=== PATIENT | female | born 1955 | race Native Hawaiian/Other Pacific Islander ===

== ENCOUNTER 2017-09-11 12:41 | Observation (INO) | payer OTHER ==
--- NOTE | 2017-09-11 12:51 | ED PDOC ---
Arrival/HPI - General Time Seen by Provider: 09/11/17 12:42 Historian: Patient, Family - History of Present Illness Narrative History of Present Illness (Text): 09/11/17 13:03 Patient is a 62 yo female, past medical history of hypertension, presents to ED with family for acute onset of shortness of breath approximately one hour prior to arrival. Patient reportedly has had "a cough for about one year". Family states that she awoke "her normal self" and symptoms started approximately one hour prior to arrival. Patient denies chest pain or back pain. Denies neck pain or arm pain. Son states that she feels as if she has been "coughing more" over the past several days. Patient moved here from [place] in March of this year as per son. She denies any known past cardiac history aside from hypertension, denies prior pulmonary disease. No history of fevers or chills. No productive sputum. Time/Duration: Prior to Arrival Symptom Onset: Sudden Past Medical History - Provider Review Nursing Documentation Reviewed: Yes Family/Social History - Physician Review Nursing Documentation Reviewed: Yes Family/Social History: No Known Family HX Allergies/Home Meds Allergies/Adverse Reactions: Allergies No Known Allergies Allergy (Verified 09/11/17 12:44) Home Medications: Home Meds Medication Instructions Recorded Confirmed Carvedilol [Coreg] 6.25 mg PO DAILY 09/11/17 09/11/17 Levothyroxine [Synthroid] 100 mcg PO DAILY 09/11/17 09/11/17 Review of Systems - Review of Systems Constitutional: Fatigue Respiratory: SOB, Cough. absent: Sputum, Wheezing Cardiovascular: Edema, KITCHEN. absent: Chest Pain, Palpitations, Calf Pain, Orthopnea, Syncope Gastrointestinal: absent: Abdominal Pain Musculoskeletal: absent: Back Pain Skin: absent: Rash Neurological: absent: Headache, Dizziness Hemo/Lymphatic: absent: Easy Bleeding Physical Exam - Physical Exam Narrative Physical Exam (Text): 09/11/17 12:48 Head: Atraumatic. Normocephalic. Eyes: PERRL. EOMI. Conjunctivae are not pale. ENT: Mucous membranes are moist and intact. Oropharynx is clear and symmetric. Neck: Supple. Full ROM. No JVD. No lymphadenopathy. Cardiovascular: Tachycardic. Systolic murmur. Distal pulses are 2+ and symmetric. Pulmonary/Chest: Tachypneic, rales at bases bilaterally. No accessory muscle usage. No retractions. Abdominal: Soft and non-distended. There is no tenderness. No rebound, guarding, or rigidity. No organomegaly. Good bowel sounds. Back: No CVA tenderness. Extremities: Bilateral mild nonpitting edema. No cyanosis. No clubbing. Full range of motion in all extremities. No calf tenderness. Skin: Skin is warm and dry. No petechiae. No purpura. Neurological: Alert, awake, appropriate. Motor and sensory exam intact. No facial droop. No meningeal signs. Psychiatric: Good eye contact. Normal interaction, affect, and behavior. Vital Signs Reviewed: Yes Vital Signs Temp Pulse Resp BP Pulse Ox 09/11/17 15:47 73 16 140/90 100 09/11/17 15:27 138/77 09/11/17 13:45 97.8 F 100 H 16 106/57 L 100 09/11/17 13:40 92 H 16 144/87 100 09/11/17 13:00 93 H 16 149/98 H 100 09/11/17 12:45 16 09/11/17 12:42 98 F 89 15 165/104 H 98 Temperature: Afebrile Blood Pressure: Hypertensive Respiratory Rate: Tachypneic Appearance: Positive for: Ill-Appearing, Uncomfortable Pain Distress: Moderate Mental Status: Positive for: Alert and Oriented X 3 Medical Decision Making ED Course and Treatment: Patient is a 62 yo female visiting from [facility] since March with acute onset of shortness of breath. Patient denies any chest pain or back pain. Patient denies any past cardiac history or diabetes. Patient present with son who supplements history. Patient with no recent fevers/chills. On exam the patient is noted to have rales although patient was started on nitroglycerin drip prior to arrival due to noted significant hypertension PRIOR TO ARRIVAL with reported improvement in SOB. She is on CPAP prior to arrival. She was expressing discomfort in face from CPAP and was switched to nasal cannula. She is oxygenating well with no pain on serial exams, no chest discomfort reported or noted. Patient on re-exam has been take off nitroglycerin drip while in ED at this time BP is better controlled. Labs were reviewed, will administer dose of Lasix as patient with possible component of congestive heart failure, uncontrolled hypertension. Patient will be admitted to telemetry bed to hospitalist service for further BP monitoring as well as cardiology/pulmonology evaluation. 09/11/17 15:05 - Lab Interpretations Lab Results: 09/11/17 13:22 09/11/17 13:22 Lab Results 09/11/17 13:40: pCO2 41, pO2 124.0 H, HCO3 24.3, ABG pH 7.38, ABG Total CO2 25.6 , ABG O2 Saturation 98.7 H, ABG Base Excess -0.8, ABG Potassium 3.9, Sodium 130.0 L, Chloride 99.0, Glucose 97, Lactate 1.3, FiO2 32.0, Arterial Blood Potassium 3.9 09/11/17 13:22: Sodium 132, Chloride 95 L, Potassium 4.3, Carbon Dioxide 26, Anion Gap 14, BUN 18, Creatinine 1.0, Est GFR ( Amer) > 60, Est GFR (Non- Af Amer) 56, Random Glucose 104, Calcium 8.9, Total Bilirubin 0.4, AST 41 H, ALT 41, Alkaline Phosphatase 84, Lactate Dehydrogenase 702 H, Total Creatine Kinase 156, Troponin I < 0.01, NT-Pro-B Natriuret Pep 1510 H, Total Protein 7.8 , Albumin 4.4, Globulin 3.4, Albumin/Globulin Ratio 1.3 09/11/17 13:22: pO2 36, VBG pH 7.24 L, VBG pCO2 65.0 H, VBG HCO3 27.9, VBG Total CO2 29.9 H, VBG O2 Sat (Calc) 69.0 H, VBG Base Excess -1.0 L, VBG Potassium 4.3, Sodium 130.0 L, Chloride 96.0 L, Glucose 107 H, Lactate 1.1, FiO2 21.0, Venous Blood Potassium 4.3 09/11/17 13:22: PT 12.0, INR 1.09 H, APTT 31.8 09/11/17 13:22: WBC 7.0, RBC 3.89, Hgb 11.0 L, Hct 33.7 L, MCV 86.6, MCH 28.3, MCHC 32.6, RDW 13.3, Plt Count 275, MPV 10.2, Gran % 62.1, Lymph % (Auto) 28.2, Early % (Auto) 4.3, Eos % (Auto) 4.8, Baso % (Auto) 0.6, Gran # 4.37, Lymph # 2.0 , Early # 0.3, Eos # 0.3, Baso # 0.04 - RAD Interpretation Radiology Orders: 09/11/17 12:56 CHEST PORTABLE [RAD] Stat 09/11/17 14:07 DUPLEX LOWER EXTRM VEIN BILAT [US] Stat - EKG Interpretation EKG Interpretation (Text): 09/11/17 15:05 sinus tachycardia rate of [address] elevations Interpreted by ED Physician: Yes Type: 12 lead EKG Comparison: No previous EKG avail. - Medication Orders Current Medication Orders: Acetaminophen (Tylenol 325mg Tab) 650 mg PO Q6H PRN PRN Reason: Pain, moderate (4-7) Aspirin (Aspirin Chewable) 81 mg PO DAILY DOMINGO Carvedilol (Coreg) 6.25 mg PO DAILY DOMINGO Enoxaparin Sodium (Lovenox) 40 mg SC DAILY DOMINGO PRN Reason: Protocol Famotidine (Pepcid) 20 mg PO 1000,2200 DOMINGO Furosemide (Lasix) 40 mg IVP BID DOMINGO Levothyroxine Sodium (Synthroid) 100 mcg PO DAILY DOMINGO Lisinopril (Zestril) 5 mg PO DAILY DOMINGO Discontinued Medications Acetaminophen (Tylenol 325mg Tab) 650 mg PO ONCE STA Stop: 09/11/17 13:32 Last Admin: 09/11/17 14:08 Dose: 650 mg [facility] Pain/Vitals Document 09/11/17 14:08 SRE (Rec: 09/11/17 14:09 SRE [id number]) Pain Reassessment Is This A Pain ReAssessment? Yes Sleep Is patient sleeping during reassessment? No Presence of Pain Presence of Pain Yes Pain Scale Used Pain Scale Used Numeric Location Pain Location Body Registered [facility] Nurse Description Intermittent Furosemide (Lasix) 20 mg IVP ONCE ONE Stop: 09/11/17 14:29 Last Admin: 09/11/17 15:27 Dose: 20 mg MAR Blood Pressure Document 09/11/17 15:27 SRE (Rec: 09/11/17 15:35 SRE [id number]) Blood Pressure Blood Pressure (100/60-150/90) 138/77 IVP Administration Document 09/11/17 15:27 SRE (Rec: 09/11/17 15:35 SRE [id number]) Charges for Administration # of IVP Administrations 1 - Scribe Statement The provider has reviewed the documentation as recorded by the Scribe Cheri West Provider Scribe Attestation: All medical record entries made by the Scribe were at my direction and personally dictated by me. I have reviewed the chart and agree that the record accurately reflects my personal performance of the history, physical exam, medical decision making, and the department course for this patient. I have also personally directed, reviewed, and agree with the discharge instructions and disposition. Disposition/Present on Arrival - Present on Arrival Any Indicators Present on Arrival: No - Disposition Have Diagnosis and Disposition been Completed?: Yes Diagnosis: Congestive heart failure, Hypertension Disposition: HOSPITALIZED Disposition Time: 14:00 Patient Plan: Admission, Telemetry Patient Problems: Current Active Problems Problem Status Onset Congestive heart failure Acute Hypertension Acute Condition: SERIOUS
[2017-09-11 13:27] LABS: BASO # 0.04 K/mm3 (0.0-2.0); BASO % 0.6 % (0.0-3.0); EOS # 0.3 (0.0-0.7); EOS % 4.8 % (1.5-5.0); GRAN # 4.37 (1.4-6.5); GRAN % 62.1 % (50.0-68.0); HEMATOCRIT 33.7 % (36.0-48.0); LYMPH % 28.2 % (22.0-35.0); MEAN CELL VOLUME 86.6 fl (80.0-105.0); MEAN CORPUSCULAR HEMOGLOBIN 28.3 pg (25.0-35.0); MEAN CORPUSCULAR HGB CONC 32.6 g/dl (31.0-37.0); MEAN PLATELET VOLUME 10.2 fl (7.0-11.0); MONO # 0.3 (0.1-0.6); MONO % 4.3 % (1.0-6.0); RED CELL DISTRIBUTION WIDTH 13.3 % (11.5-14.5)
[2017-09-11 13:30] LABS: VENOUS BLOOD PH 7.24 (7.32-7.43)
[2017-09-11 13:37] LABS: INR 1.09 (0.93-1.08)
[2017-09-11 13:38] LABS: PARTIAL THROMBOPLASTIN TIME 31.8 Seconds (25.1-36.5)
[2017-09-11 13:47] LABS: ALB/GLOB RATIO 1.3 (1.1-1.8); ALKALINE PHOSPHATASE 84 U/L (38-126); ALT/SGPT 41 U/L (7-56); AST/SGOT 41 U/L (14-36); BILIRUBIN,TOTAL 0.4 mg/dL (0.2-1.3); BLOOD UREA NITROGEN 18 mg/dL (7-21); CALCIUM 8.9 mg/dL (8.4-10.5); CARBON DIOXIDE 26 mmol/L (21-33); CHLORIDE 95 mmol/L (98-107); GFR AFRICAN-AMERICAN > 60; GLUCOSE,RANDOM 104 mg/dL (70-110); POTASSIUM 4.3 mmol/L (3.6-5.0); SODIUM 132 mmol/L (132-148); TOTAL PROTEIN 7.8 g/dL (5.8-8.3)
[2017-09-11 13:55] LABS: TROPONIN I < 0.01 ng/mL
[2017-09-11 13:57] LABS: ARTERIAL BLOOD GAS HCO3 24.3 mmol/L (21-28); ARTERIAL BLOOD GAS PH 7.38 (7.35-7.45)
--- NOTE | 2017-09-11 14:40 | CP.PCM.HP ---
<Rae Villalobos - Last Filed: 09/11/17 17:06> History of Present Illness - History of Present Illness History of Present Illness: 62 year old female PMHx HTN,hypothyroidism, and arthritis presents with shortness of breath prior to arrival to the ED. Patient reports her symptoms began suddenly when she was in the bathroom with no inciting factors. Patient reports she has dyspnea on exertion and can usually walk for 10 minutes prior to becoming short of breath and she stated she is unable to stand up for very long or climb stairs. She uses 1 pillow to sleep and denied orthopnea or paroxysmal nocturnal dyspnea. She did report a nonproductive cough for 1 year now with no inciting factor but denied any fevers or chills. She also denied any chest pain, palpitations, abdominal pain, nausea, vomiting, bowel/bladder complaints. She did notice some swelling in her legs but is uncertain for how long and reported she had pain in her legs that she associated with arthritis. Patient is visiting from [place] since March and staying with her family. She denied any recent sick contacts or change in medications. PMD: None [patient visiting from [place]] Pharmacy: None PMHx: HTN, hypothyroidism, arthritis PSurgHx: cholecystectomy FamHx: SocHx: denies EtOH and drug use; does not smoke cigarettes but chews tobacco in the form of paan [bey leaf] 4-5/day Meds: pls see chart ALL: NKDA Present on Admission - Present on Admission Any Indicators Present on Admission: No Review of Systems - Review of Systems All systems: reviewed and no additional remarkable complaints except - Constitutional Constitutional: As Per HPI. absent: Chills, Fever - EENT Eyes: As Per HPI. absent: Blurred Vision Ears: As Per HPI. absent: Dizziness Nose/Mouth/Throat: As Per HPI. absent: Sore Throat - Cardiovascular Cardiovascular: As Per HPI, Dyspnea, Pedal Edema. absent: Chest Pain, Edema, Orthopnea, Paroxysmal Nocturnal Dyspnea - Respiratory Respiratory: As Per HPI, Cough, Dyspnea, Dyspnea on Exertion - Gastrointestinal Gastrointestinal: As Per HPI. absent: Abdominal Pain, Constipation, Diarrhea, Nausea, Vomiting - Genitourinary Genitourinary: As Per HPI. absent: Dysuria, Pyuria - Musculoskeletal Musculoskeletal: As Per HPI. absent: Back Pain, Numbness, Tingling - Integumentary Integumentary: As Per HPI. absent: Dry Skin - Neurological Neurological: As Per HPI. absent: Dizziness, Numbness, Headaches - Psychiatric Psychiatric: As Per HPI. absent: Anxiety - Endocrine Endocrine: As Per HPI. absent: Polydipsia, Polyphagia, Polyuria - Hematologic/Lymphatic Hematologic: As Per HPI. absent: Easy Bleeding, Easy Bruising Past Patient History - Past Social History Smoking Status: Never Smoked - CARDIAC Hx Cardiac Disorders: Yes Hx Hypertension: Yes - NEUROLOGICAL Hx Neurological Disorder: Yes Hx Seizures: Yes - PSYCHIATRIC Hx Substance Use: No - SURGICAL HISTORY Hx Surgeries: No Meds Allergies/Adverse Reactions: Allergies Allergy/AdvReac Type Severity Reaction Status Date / Time No Known Allergies Allergy Verified 09/11/17 12:44 Physical Exam - Constitutional Appears: Non-toxic, No Acute Distress - Head Exam Head Exam: ATRAUMATIC, NORMAL INSPECTION - Eye Exam Eye Exam: EOMI, Normal appearance, PERRL. absent: Conjunctival injection, Scleral icterus Pupil Exam: PERRL - ENT Exam ENT Exam: Mucous Membranes Dry - Neck Exam Neck exam: Negative for: Lymphadenopathy, Tenderness - Respiratory Exam Respiratory Exam: Decreased Breath Sounds, NORMAL BREATHING PATTERN - Cardiovascular Exam Cardiovascular Exam: Tachycardia, REGULAR RHYTHM, +S1, +S2, Systolic Murmur - GI/Abdominal Exam GI & Abdominal Exam: Normal Bowel Sounds, Soft. absent: Rebound, Rigid, Tenderness - Extremities Exam Extremities exam: Positive for: pedal edema (b/l nonpitting mild), pedal pulses present - Back Exam Back exam: NORMAL INSPECTION. absent: rash noted - Neurological Exam Neurological exam: Alert, CN II-XII Intact, Oriented x3 - Psychiatric Exam Psychiatric exam: Normal Affect, Normal Mood - Skin Skin Exam: Dry, Intact, Normal Color, Warm Results - Vital Signs Recent Vital Signs: Last Vital Signs Temp 98 F 09/11/17 12:42 Pulse 100 H 09/11/17 13:45 Resp 16 09/11/17 13:45 BP 106/57 L 09/11/17 13:45 Pulse Ox 100 09/11/17 13:45 - Labs Result Diagrams: 09/11/17 13:22 09/11/17 13:22 Assessment & Plan - Assessment and Plan (Free Text) Assessment: 62 year old female PMHx HTN,hypothyroidism, and arthritis presents with shortness of breath prior to arrival to the ED Plan: Hypertensive Urgency - as per ED patient presented with significantly elevated BP and was started on a nitro drip prior to arrival which was later discontinued - troponin x 1: < 0.01 f/u troponin x 2 - EKG on admission: sinus tachycardia with no acute ST changes - ASA 81mg po qdaily - Lisinopril 5mg po qdaily - Coreg 6.25mg po qdaily - Hydralazine 10mg ivp q6h PRN SBP > 160mmHg - Monitor blood pressure - Cardio consult: Dr. George Shortness of breath - f/u CXR - proBNP: 1510 - Lasix 40mg ivp bid - Lisinopril 5mg po qdaily - Coreg 6.25mg po qdaily - Lasix 40mg ivp bid - f/u Echo - f/u legionella - negative for flu - Measure strict Is and Os - Measure weight daily - Fluid restricted diet - Cardio consult: Dr. George B/L LE swelling - f/u LE u/s b/l Abnormal u/a - UA: trace leuk esterase and trace lysed blood - patient denied any urinary complaints - afebrile with no elevated WBC - f/u blood culture and urine culture Hx of HTN - continue home Coreg 6.25mg po qd - f/u Lipid panel and HgbA1c Hx of Hypothyroidism - f/u thyroid panel [TSH and free T4] - continue home Levothyroxine 100mg po qd Hx of arthritis - no acute issues - Tylenol 650mg po q6 prn pain [mod] GI ppx: Pepcid 20mg po bid DVT ppx: Lovenox 40mg sc qd Diet: heart healthy diet with 2g Na and fluid restriction of 1500cc Fluids: none Discussed with Dr. Spenser Villalobos PGY2 <Cee Dueñas - Last Filed: 09/11/17 17:33> Results - Vital Signs Recent Vital Signs: Last Vital Signs Temp 97.8 F 09/11/17 13:45 Pulse 73 09/11/17 16:58 Resp 16 09/11/17 16:58 BP 155/90 H 09/11/17 16:58 Pulse Ox 100 09/11/17 16:58 - Labs Result Diagrams: 09/11/17 13:22 09/11/17 13:22 Labs: Laboratory Results - last 24 hr 09/11/17 09/11/17 15:30 15:35 Urine Color Straw Urine Appearance Clear Urine pH 6.0 Ur Specific [place] <= 1.005 Urine Protein Negative Urine Glucose (UA) Negative Urine Ketones Negative Urine Blood Trace-lysed H Urine Nitrate Negative Urine Bilirubin Negative Urine Urobilinogen 0.2 Ur Leukocyte Esterase Trace H Urine RBC 0 - 2 Urine WBC 1 - 3 Ur Epithelial Cells 6 - 8 Urine Bacteria Few Influenza Typ A,B (EIA) Negative for flu a/b Attending/Attestation - Attestation I have personally seen and examined this patient.: Yes I have fully participated in the care of the patient.: Yes I have reviewed all pertinent clinical information: Yes Notes (Text): 09/11/17 17:30 Patient was seen and examined .Family is at bed side. Agreed with resident assessment and plan. 62 year old female PMHx HTN,hypothyroidism, and arthritis is admitted with CHF exacerbation and hypertensive urgency.Blood pressure has improved.EKG is negative for ischemic changes.We will start patient on IV lasix, will get serial troponins and follow up BUN and creatinin. We will get 2D Echo and cardiology evaluation. Management plan was discussed in detail with patient Education was provided.
--- NOTE | 2017-09-11 14:53 | CARD ---
APPROVED REPORT EKG Measurement Heart [id number] <Conclusion> Sinus tachycardia Possible Left atrial enlargement Borderline ECG
[2017-09-11 15:55] LABS: URINE BILIRUBIN NEGATIVE (NEGATIVE); URINE BLOOD TRACE-LYSED (NEGATIVE); URINE GLUCOSE (UA) NEGATIVE (NEGATIVE); URINE KETONE NEGATIVE (NEGATIVE); URINE LEUKOCYTE ESTERASE TRACE Leu/uL (NEGATIVE); URINE PROTEIN NEGATIVE mg/dL (<30 mg/dL); URINE UROBILINOGEN 0.2 E.U./dL (<1 E.U./dL)
[2017-09-11 15:56] LABS: URINE APPEARANCE CLEAR (CLEAR); URINE COLOR STRAW (YELLOW)
[2017-09-11 16:08] LABS: URINE BACTERIA FEW (NEG); URINE RBC 0 - 2 /hpf (0-2)
[2017-09-11 18:02] VITALS: BMI 23.8
[2017-09-11] MEDS ORDERED: Influenza Vaccine 60 mcg/0.5 mL SYR (4YR UP) IM ONE (18:03)
[2017-09-11] MEDS ORDERED: Pneumococcal 23-Valent Vaccine IM ONE (18:03)
[2017-09-12 05:50] LABS: CHOLESTEROL 151 mg/dL (130-200)
[2017-09-12 05:53] LABS: FREE T4 1.57 ng/dL (0.78-2.19)
[2017-09-12 06:07] LABS: THYROID STIMULATING HORMONE 2.38 mIU/mL (0.46-4.68)
--- NOTE | 2017-09-12 07:05 | CP.PCM.PN ---
Addendum entered and electronically signed by Rae Villalobos DO 09/12/17 14:23: urine culture: Gram + cocci prelim started on Vantin 100mg po bid Will follow up sensitivities Discussed with Dr. Victorino Villalobos PGY2 Addendum entered and electronically signed by Rae Villalobos DO 09/12/17 12:36: Patient started on lasix 20mg ivp bid and 40mg ivp discontinued. HgbA1c : 5.[address] Victorino Villalobos PGY2 Original Note: <Rae Villalobos - Last Filed: 09/12/17 12:03> Subjective - Date & Time of Evaluation Date of Evaluation: 09/12/17 Time of Evaluation: 09:35 - Subjective Subjective: PGY2 Medicine note for Dr. Gleason Patient seen and examined at bedside. Family [daughter, son-in-law, and daughter -in-law] was at bedside. Nursing reported no acute events overnight. Patient reported she slept well through the night and her shortness of breath had resolved. She complained she was urinating frequently since after receiving the lasix and was explained to that this is expected. Patient denied any headache, dizziness, chest pain, palpitations, cough, abdominal pain, nausea, vomiting, bowel/bladder complaints, pain in her legs. She stated she felt like the bilateral swelling in her legs had improved slightly. She is eating well and has been encouraged to be OOB to chair. She was requesting more salt in her diet and was counseled on the importance of a low salt diet. Patient also disclosed that she has a history of epilepsy and family members would bring in the medications she takes from [place]. Objective - Vital Signs/Intake and Output Vital Signs (last 24 hours): Temp Pulse Resp BP Pulse Ox 99.0 F 74 20 141/85 99 09/12/17 06:00 09/12/17 06:00 09/12/17 06:00 09/12/17 06:00 09/12/17 06:00 Intake and Output: 09/12/17 09/12/17 06:59 18:59 Intake Total 1140 Balance 1140 - Medications Medications: Current Medications Acetaminophen (Tylenol 325mg Tab) 650 mg PO Q6H PRN PRN Reason: Pain, moderate (4-7) Aspirin (Aspirin Chewable) 81 mg PO DAILY [facility] Carvedilol (Coreg) 6.25 mg PO DAILY [facility] Enoxaparin Sodium (Lovenox) 40 mg SC DAILY [facility] PRN Reason: Protocol Famotidine (Pepcid) 20 mg PO 1000,2200 [facility] Last Admin: 09/11/17 21:36 Dose: 20 mg Furosemide (Lasix) 40 mg IVP BID [facility] Last Admin: 09/11/17 18:51 Dose: 40 mg Hydralazine HCl (Apresoline) 10 mg IVP Q6H PRN PRN Reason: Systolic Blood Pressure Levothyroxine Sodium (Synthroid) 100 mcg PO DAILY [facility] Lisinopril (Zestril) 5 mg PO DAILY [facility] - Labs Labs: PT 12.0 SECONDS (9.4-12.5) 09/11/17 13:22 INR 1.09 (0.93-1.08) H 09/11/17 13:22 APTT 31.8 Seconds (25.1-36.5) 09/11/17 13:22 - Constitutional Appears: Non-toxic, No Acute Distress - Head Exam Head Exam: ATRAUMATIC, NORMAL INSPECTION, NORMOCEPHALIC - Eye Exam Eye Exam: EOMI, Normal appearance, PERRL. absent: Conjunctival injection, Scleral icterus - ENT Exam ENT Exam: Mucous Membranes Dry - Neck Exam Neck Exam: Normal Inspection. absent: Lymphadenopathy - Respiratory Exam Respiratory Exam: Decreased Breath Sounds, NORMAL BREATHING PATTERN. absent: Accessory Muscle Use, Respiratory Distress - Cardiovascular Exam Cardiovascular Exam: REGULAR RHYTHM, JVD, RRR, +S1, +S2, Murmur - GI/Abdominal Exam GI & Abdominal Exam: Soft, Normal Bowel Sounds. absent: Firm, Guarding, Rigid, Tenderness - Extremities Exam Extremities Exam: Normal Capillary Refill, Normal Inspection. absent: Pedal Edema, Tenderness - Back Exam Back Exam: NORMAL INSPECTION. absent: rash noted - Neurological Exam Neurological Exam: Alert, Awake, CN II-XII Intact, Oriented x3 - Psychiatric Exam Psychiatric exam: Normal Affect, Normal Mood - Skin Skin Exam: Dry, Intact, Normal Color, Warm Assessment and Plan - Assessment and Plan (Free Text) Assessment: 62 year old female PMHx HTN,hypothyroidism, and arthritis presents with shortness of breath prior to arrival to the ED Plan: Hypertensive Urgency - resolved - as per ED patient presented with significantly elevated BP and was started on a nitro drip prior to arrival which was later discontinued - troponin negatice x 3 - EKG on admission: sinus tachycardia with no acute ST changes - ASA 81mg po qdaily - Lisinopril 5mg po qdaily - Coreg 6.25mg po qdaily - Hydralazine 10mg ivp q6h PRN SBP > 160mmHg - Monitor blood pressure - Cardio consult: Dr. George Shortness of breath - f/u CXR official read - proBNP: 1510 - Lasix 40mg ivp bid - Lisinopril 5mg po qdaily - Coreg 6.25mg po qdaily - Lasix 40mg ivp bid - f/u Echo - Negative legionella - negative for flu - Measure strict Is and Os - Measure weight daily - Fluid restricted diet - Cardio consult: Dr. George B/L LE swelling - improved - f/u LE u/s b/l Asymptomatic UTI - UA: trace leuk esterase and trace lysed blood - patient denied any urinary complaints - afebrile with no elevated WBC - f/u repeat UA - f/u blood culture and urine culture Hx of Epileptic Seizures - patient takes medication from [place] Gardenal 30mg qhs - started patient on phenobarbital 32.4mg po qhs - Ativan 1 mg q3 prn seizure - Seizure precautions - Fall risk Hx of CAD - patient reports some history of CAD with cardiac cath and Echo in 2016 - patient was taking Clopitab 75mg po qd at home in [place] - restarted patient on Plavix 75mg po qdaily - Lipitor 20mg po qhs - Echo pending - patient will likely need stress test - Cardio consult: Dr. George Hx of HTN - continue home Coreg 6.25mg po qd - Lisinopril 5mg po qdaily - Lasix 40mg ivp bid - Hydralazine 10mg ivp q6h PRN SBP > 160mmHg - Lipid panel WNL T Cholesterol: 151 LDL: 73 HDL: 47 - f/u HgbA1c Hx of Hypothyroidism - Thyroid panel WNL TSH: 2.38 Free T4: 1.57 - continue home Levothyroxine 100mg po qd Hx of arthritis - no acute issues - Tylenol 650mg po q6 prn pain [mod] - PT/OT ordered for difficulty ambulating GI ppx: Pepcid 20mg po bid DVT ppx: Lovenox 40mg sc qd Diet: heart healthy diet with 2g Na and fluid restriction of 1500cc Fluids: none Discussed with Dr. Victorino Villalobos PGY2 <Reina Gleason - Last Filed: 09/12/17 18:35> Objective - Vital Signs/Intake and Output Vital Signs (last 24 hours): Temp Pulse Resp BP Pulse Ox 99.1 F 72 20 132/79 99 09/12/17 17:27 09/12/17 18:00 09/12/17 12:12 09/12/17 17:48 09/12/17 06:00 Intake and Output: 09/12/17 09/12/17 06:59 18:59 Intake Total 1140 Balance 1140 - Medications Medications: Current Medications Acetaminophen (Tylenol 325mg Tab) 650 mg PO Q6H PRN PRN Reason: Pain, moderate (4-7) Aspirin (Aspirin Chewable) 81 mg PO DAILY [facility] Last Admin: 09/12/17 10:34 Dose: 81 mg Atorvastatin Calcium (Lipitor) 20 mg PO DIN [facility] Last Admin: 09/12/17 17:48 Dose: 20 mg Carvedilol (Coreg) 6.25 mg PO BID [facility] Last Admin: 09/12/17 17:48 Dose: 6.25 mg Cefpodoxime Proxetil (Vantin) 100 mg PO Q12 [facility] PRN Reason: Protocol Clopidogrel Bisulfate (Plavix) 75 mg PO DAILY [facility] Last Admin: 09/12/17 14:33 Dose: 75 mg Enoxaparin Sodium (Lovenox) 40 mg SC DAILY [facility] PRN Reason: Protocol Last Admin: 09/12/17 10:34 Dose: 40 mg Famotidine (Pepcid) 20 mg PO 1000,2200 [facility] Last Admin: 09/12/17 10:34 Dose: 20 mg Furosemide (Lasix) 20 mg IVP BID [facility] Last Admin: 09/12/17 17:48 Dose: 20 mg Hydralazine HCl (Apresoline) 10 mg IVP Q6H PRN PRN Reason: Systolic Blood Pressure Levothyroxine Sodium (Synthroid) 100 mcg PO DAILY [facility] Last Admin: 09/12/17 10:34 Dose: 100 mcg Lisinopril (Zestril) 5 mg PO DAILY [facility] Last Admin: 09/12/17 10:38 Dose: 5 mg Lorazepam (Ativan) 1 mg IVP Q3H PRN; Protocol PRN Reason: Seizure activity Phenobarbital (Phenobarbital Tab) 32.4 mg PO HS [facility] - Labs Labs: 09/12/17 08:00 09/12/17 08:00 PT 12.0 SECONDS (9.4-12.5) 09/11/17 13:22 INR 1.09 (0.93-1.08) H 09/11/17 13:22 APTT 31.8 Seconds (25.1-36.5) 09/11/17 13:22 Attending/Attestation - Attestation I have personally seen and examined this patient.: Yes I have fully participated in the care of the patient.: Yes I have reviewed all pertinent clinical information, including history, physical exam and plan: Yes Notes (Text): 09/12/17 18:32 Patient seen and examined independently. Translation used. Reports improvement in her presenting complaints. H/O cardiac cath in 2015 with some " occlusion" but no PCI performed. [place] since fe[place] and plans to return to [facility] in september. Cardiology team on board, presentation acute and consistent with flash pulmonary edema 2/2 hypertensive urgency. CAD status undetermined and will benefit from NM stress test. BP well controlled with current regimen, plavix restarted. Dietary compliance and tobacco cessation reiterated. Agree with the plan as outlined by the resident.
[2017-09-12 08:30] LABS: BASO # 0.03 K/mm3 (0.0-2.0); BASO % 0.5 % (0.0-3.0); EOS # 0.2 (0.0-0.7); EOS % 3.7 % (1.5-5.0); GRAN # 3.46 (1.4-6.5); GRAN % 58.5 % (50.0-68.0); HEMATOCRIT 30.8 % (36.0-48.0); LYMPH # 1.8 (1.2-3.4); LYMPH % 29.9 % (22.0-35.0); MEAN CELL VOLUME 83.5 fl (80.0-105.0); MEAN CORPUSCULAR HEMOGLOBIN 28.2 pg (25.0-35.0); MEAN CORPUSCULAR HGB CONC 33.8 g/dl (31.0-37.0); MEAN PLATELET VOLUME 9.5 fl (7.0-11.0); MONO # 0.4 (0.1-0.6); MONO % 7.4 % (1.0-6.0); RED CELL DISTRIBUTION WIDTH 12.9 % (11.5-14.5); WHITE BLOOD COUNT 5.9 10^3/ul (4.5-11.0)
[2017-09-12 09:00] LABS: ALB/GLOB RATIO 1.2 (1.1-1.8); BILIRUBIN,TOTAL 0.4 mg/dL (0.2-1.3); CALCIUM 8.8 mg/dL (8.4-10.5); MAGNESIUM 1.6 mg/dL (1.7-2.2); PHOSPHOROUS 4.9 mg/dL (2.5-4.5); TOTAL PROTEIN 7.3 g/dL (5.8-8.3)
[2017-09-12] MEDS ORDERED: Magnesium Sulfate 1 gm in D5W 1 GM/100 ML BAG IVPB ONE (09:51)
[2017-09-12] MEDS: Levothyroxine 100 MCG TAB PO SCH (10:34)
[2017-09-12] MEDS: Enoxaparin 40 mg Syringe SC SCH (10:34)
[2017-09-12] MEDS: Cefpodoxime (Vantin) 100 mg Tab PO SCH (21:21)
--- NOTE | 2017-09-12 22:59 | CON ---
DATE: 09/12/2017 REQUESTING PHYSICIAN: Dr. Dueñas. REASON FOR CONSULTATION: CHF, hypertensive urgency. HISTORY OF PRESENT ILLNESS: This is a 62-year-old woman from [place] visiting her family obligation who developed severe dyspnea yesterday. She was noted to be markedly hypertensive and presented to the emergency room. Her blood pressure markedly elevated and she was treated with IV nitroglycerin. She has also used BiPAP. Lasix was administered. She is now seen lying in bed on telemetry. She is comfortable. She denies dyspnea. She has had no chest pain. She is seen the presence of her daughter who is serves as an automotive parts interpreter. In the presence of daughter, the patient underwent full body evaluation recently in [place]. She apparently had stress testing performed and also cardiac catheterization, which reportedly should no evidence of blockages. She does have a history of hypertension. She claims compliance with medications. She denies any excess sodium intake lately. PAST MEDICAL HISTORY: Notable only for the aforementioned hypertension. She also has a history of hypothyroidism. MEDICATIONS AT HOME: Reportedly included Synthroid and carvedilol 6.25 mg. ALLERGIES: NONE. SOCIAL HISTORY: She does not smoke or drink. FAMILY HISTORY: Both parents are from the age-related illness. No family history of premature heart diseases. REVIEW OF SYSTEMS: A 10-point review of systems is notable mainly for the problems as mentioned above. PHYSICAL EXAMINATION: GENERAL: She is a well-developed middle-aged woman. VITAL SIGNS: Blood pressure is 140/86 with a pulse of 70 and sinus, respirations are 16. She is afebrile. HEENT: Normocephalic and atraumatic. NECK: Supple. No JVD noted. CHEST: Bilateral scattered rhonchi. HEART: PMI displaced laterally with soft systolic murmur in the left sternal border. ABDOMEN: Soft, nontender with normoactive bowel sounds. EXTREMITIES: No edema. SKIN: Warm and dry. PSYCHIATRIC: Normal mood and affect. NEUROLOGIC: Alert and oriented x3. No gross motor or sensory is appreciable. DIAGNOSTIC DATA: White count 7.0, hemoglobin and hematocrit are 11.0 and 33.7 with a platelet count of 275,000. PT/PTT were normal. Arterial blood gas revealed the pH of 7.38, pCO2 of 41, pO2 of 124. Potassium 4.3, BUN and creatinine 18 and 1.0. Three sets of cardiac enzymes are negative. Initial BNP is 1510. Electrocardiogram revealed sinus tachycardia with nonspecific ST-T abnormalities. Chest x-ray revealed borderline cardiac silhouette enlargement with mild pulmonary vascular congestion. IMPRESSION: 1. Accelerated hypertension, clinically improved. 2. Dyspnea with evidence of mild congestive heart failure likely secondary to diastolic dysfunction and hypertension. 3. Rest of the problems as noted. RECOMMENDATIONS: Addition dose of Lasix will be planned for today. Carvedilol will be increased to more appropriate b.i.d. dosing. An echocardiogram will be obtained and reviewed. Her antihypertensive therapy will be adjusted as needed. As she apparently had catheterization performed recently, workup for ischemic heart disease would not appears necessary. Thank you for this consultation. We will be happy to see as needed. Eliecer Pickens MD
[2017-09-13 05:27] VITALS: O2SAT 99
[2017-09-13 06:39] LABS: BASO # 0.04 K/mm3 (0.0-2.0); BASO % 0.6 % (0.0-3.0); EOS # 0.3 (0.0-0.7); GRAN # 3.45 (1.4-6.5); GRAN % 50.4 % (50.0-68.0); HEMATOCRIT 32.8 % (36.0-48.0); LYMPH # 2.3 (1.2-3.4); MEAN CELL VOLUME 83.2 fl (80.0-105.0); MEAN CORPUSCULAR HEMOGLOBIN 28.4 pg (25.0-35.0); MEAN CORPUSCULAR HGB CONC 34.1 g/dl (31.0-37.0); MEAN PLATELET VOLUME 9.9 fl (7.0-11.0); MONO # 0.7 (0.1-0.6); RED CELL DISTRIBUTION WIDTH 12.9 % (11.5-14.5); WHITE BLOOD COUNT 6.8 10^3/ul (4.5-11.0)
[2017-09-13 07:10] LABS: ALB/GLOB RATIO 1.2 (1.1-1.8); ALKALINE PHOSPHATASE 85 U/L (38-126); ALT/SGPT 37 U/L (7-56); AST/SGOT 30 U/L (14-36); BILIRUBIN,TOTAL 0.3 mg/dL (0.2-1.3); BLOOD UREA NITROGEN 34 mg/dL (7-21); CALCIUM 9.1 mg/dL (8.4-10.5); CARBON DIOXIDE 27 mmol/L (21-33); CHLORIDE 92 mmol/L (98-107); GFR AFRICAN-AMERICAN > 60; GLUCOSE,RANDOM 92 mg/dL (70-110); POTASSIUM 3.8 mmol/L (3.6-5.0); SODIUM 130 mmol/L (132-148); TOTAL PROTEIN 7.6 g/dL (5.8-8.3)
--- NOTE | 2017-09-13 08:44 | CP.PCM.PN ---
Subjective - Date & Time of Evaluation Date of Evaluation: 09/13/17 Time of Evaluation: 07:00 - Subjective Subjective: Stable on 3R. No CP or SOB. V/S noted. BP better PE: Lungs: clear Cor.: S1S2 Abd.: soft Ext.: no edema Neuro.: alert Labs noted. Trops neg. BC x2 NG at 24 hrs Objective - Vital Signs/Intake and Output Vital Signs (last 24 hours): Temp Pulse Resp BP Pulse Ox 97.9 F 62 18 148/81 99 09/13/17 05:27 09/13/17 05:27 09/13/17 05:27 09/13/17 05:27 09/13/17 05:27 Intake and Output: 09/13/17 09/13/17 06:59 18:59 Intake Total 240 Output Total 800 Balance -560 - Medications Medications: Current Medications Acetaminophen (Tylenol 325mg Tab) 650 mg PO Q6H PRN PRN Reason: Pain, moderate (4-7) Aspirin (Aspirin Chewable) 81 mg PO DAILY [facility] Last Admin: 09/12/17 10:34 Dose: 81 mg Atorvastatin Calcium (Lipitor) 20 mg PO DIN [facility] Last Admin: 09/12/17 17:48 Dose: 20 mg Carvedilol (Coreg) 6.25 mg PO BID [facility] Last Admin: 09/12/17 17:48 Dose: 6.25 mg Cefpodoxime Proxetil (Vantin) 100 mg PO Q12 [facility] PRN Reason: Protocol Last Admin: 09/12/17 21:21 Dose: 100 mg Clopidogrel Bisulfate (Plavix) 75 mg PO DAILY [facility] Last Admin: 09/12/17 14:33 Dose: 75 mg Enoxaparin Sodium (Lovenox) 40 mg SC DAILY [facility] PRN Reason: Protocol Last Admin: 09/12/17 10:34 Dose: 40 mg Famotidine (Pepcid) 20 mg PO 1000,2200 [facility] Last Admin: 09/12/17 21:21 Dose: 20 mg Furosemide (Lasix) 20 mg IVP BID [facility] Last Admin: 09/12/17 17:48 Dose: 20 mg Hydralazine HCl (Apresoline) 10 mg IVP Q6H PRN PRN Reason: Systolic Blood Pressure Levothyroxine Sodium (Synthroid) 100 mcg PO DAILY [facility] Last Admin: 09/12/17 10:34 Dose: 100 mcg Lisinopril (Zestril) 5 mg PO DAILY [facility] Last Admin: 09/12/17 10:38 Dose: 5 mg Lorazepam (Ativan) 1 mg IVP Q3H PRN; Protocol PRN Reason: Seizure activity Phenobarbital (Phenobarbital Tab) 32.4 mg PO HS [facility] Last Admin: 09/12/17 21:30 Dose: 32.4 mg - Labs Labs: 09/13/17 06:20 09/13/17 06:20 PT 12.0 SECONDS (9.4-12.5) 09/11/17 13:22 INR 1.09 (0.93-1.08) H 09/11/17 13:22 APTT 31.8 Seconds (25.1-36.5) 09/11/17 13:22 Assessment and Plan - Assessment and Plan (Free Text) Assessment: Dyspnea HBP Hypothyroidism CAD/Cath in [place], details unavailable Plan: IV > PO Lasix Continue Coreg and lisinopril, titrate Check echo OOB as [place]. Get cath report if possible
--- NOTE | 2017-09-13 09:07 | RAD ---
HISTORY: respiratory distress COMPARISON: No prior. FINDINGS: LUNGS: No active pulmonary disease. PLEURA: No significant pleural effusion identified, no pneumothorax apparent. CARDIOVASCULAR: Normal. OSSEOUS STRUCTURES: There is some deformity of the right humeral head and inferior subluxation. This raises the possibility of a chronic dislocation. Please correlate with radiography of the shoulder. VISUALIZED UPPER ABDOMEN: Normal. OTHER FINDINGS: None. IMPRESSION: No active disease. No infiltrate. Possible chronic dislocation of right shoulder. Please correlate with plain radiography.
[2017-09-13] MEDS: Levothyroxine 100 MCG TAB PO SCH (09:29)
[2017-09-13] MEDS: Cefpodoxime (Vantin) 100 mg Tab PO SCH (09:29)
[2017-09-13] MEDS: Enoxaparin 40 mg Syringe SC SCH (09:29)
--- NOTE | 2017-09-13 10:23 | US ---
HISTORY: Leg pain and swelling. Evaluate for DVT PHYSICIAN(S): Thony Lobo MD. TECHNIQUE: Duplex sonography and color-flow Doppler with graded compression were used to evaluate the deep venous systems of both lower extremities. FINDINGS: The visualized deep venous systems of both lower extremities are sonographically normal and compressible. Normal wave forms and augmentation are seen. There is no sonographic evidence for deep venous thrombosis in the visualized segments of both lower extremities. IMPRESSION: No sonographic evidence for deep venous thrombosis in the visualized segments of both lower extremities.
[2017-09-13 13:11] VITALS: BP 126/79; RESP 17; TEMP 97.4
[2017-09-13 14:59] VITALS: PULSE 72
--- NOTE | 2017-09-13 19:18 | CP.PCM.DIS ---
<Antonio Pearlja - Last Filed: 09/13/17 19:18> Provider - Provider Date of Admission: 09/11/17 14:32 Attending physician: Quyen Roman MD Consults: Cardio: Dr George Time Spent in preparation of Discharge (in minutes): 45 Diagnosis - Discharge Diagnosis (1) Hypertensive urgency Status: Acute (2) Congestive heart failure Status: Acute Hospital Course - Lab Results Lab Results: Micro Results 09/11/17 16:00 Blood Blood Culture - Preliminary NO GROWTH AFTER 48 HOURS 09/11/17 15:45 Blood Blood Culture - Preliminary NO GROWTH AFTER 48 HOURS 09/11/17 15:35 Urine Urine Culture - Final Beta Hemolytic Strep Group B Most Recent Lab Values WBC 6.8 10^3/ul (4.5-11.0) 09/13/17 06:20 RBC 3.94 10^6/uL (3.5-6.1) 09/13/17 06:20 Hgb 11.2 g/dL (12.0-16.0) L 09/13/17 06:20 Hct 32.8 % (36.0-48.0) L 09/13/17 06:20 MCV 83.2 fl (80.0-105.0) 09/13/17 06:20 MCH 28.4 pg (25.0-35.0) 09/13/17 06:20 MCHC 34.1 g/dl (31.0-37.0) 09/13/17 06:20 RDW 12.9 % (11.5-14.5) 09/13/17 06:20 Plt Count 223 10^3/uL (120.0-450.0) 09/13/17 06:20 MPV 9.9 fl (7.0-11.0) 09/13/17 06:20 Gran % 50.4 % (50.0-68.0) 09/13/17 06:20 Lymph % (Auto) 34.0 % (22.0-35.0) 09/13/17 06:20 [place] % (Auto) 10.0 % (1.0-6.0) H 09/13/17 06:20 Eos % (Auto) 5.0 % (1.5-5.0) 09/13/17 06:20 Baso % (Auto) 0.6 % (0.0-3.0) 09/13/17 06:20 Gran # 3.45 (1.4-6.5) 09/13/17 06:20 Lymph # 2.3 (1.2-3.4) 09/13/17 06:20 [place] # 0.7 (0.1-0.6) H 09/13/17 06:20 Eos # 0.3 (0.0-0.7) 09/13/17 06:20 Baso # 0.04 K/mm3 (0.0-2.0) 09/13/17 06:20 PT 12.0 SECONDS (9.4-12.5) 09/11/17 13:22 INR 1.09 (0.93-1.08) H 09/11/17 13:22 APTT 31.8 Seconds (25.1-36.5) 09/11/17 13:22 pCO2 41 mm/Hg (35-45) 09/11/17 13:40 pO2 124.0 mm/Hg (80-100) H 09/11/17 13:40 HCO3 24.3 mmol/L (21-28) 09/11/17 13:40 ABG pH 7.38 (7.35-7.45) 09/11/17 13:40 ABG Total CO2 25.6 mmol.L (22-28) 09/11/17 13:40 ABG O2 Saturation 98.7 % (95-98) H 09/11/17 13:40 ABG Base Excess -0.8 mmol/L (-2.0-3.0) 09/11/17 13:40 ABG Potassium 3.9 mmol/L (3.6-5.2) 09/11/17 13:40 VBG pH 7.24 (7.32-7.43) L 09/11/17 13:22 VBG pCO2 65.0 (40-60) H 09/11/17 13:22 VBG HCO3 27.9 mmol/l (21-28) 09/11/17 13:22 VBG Total CO2 29.9 mmol.L (22-28) H 09/11/17 13:22 VBG O2 Sat (Calc) 69.0 % (40-65) H 09/11/17 13:22 VBG Base Excess -1.0 mmol/L (0.0-2.0) L 09/11/17 13:22 VBG Potassium 4.3 mmol/L (3.6-5.2) 09/11/17 13:22 Sodium 130.0 mmol/L (132-148) L 09/11/17 13:40 Chloride 99.0 mmol/L (98-107) 09/11/17 13:40 Glucose 97 mg/dl (65-105) 09/11/17 13:40 Lactate 1.3 mmol/L (0.7-2.1) 09/11/17 13:40 FiO2 32.0 % 09/11/17 13:40 Sodium 130 mmol/L (132-148) L 09/13/17 06:20 Potassium 3.8 mmol/L (3.6-5.0) 09/13/17 06:20 Chloride 92 mmol/L (98-107) L 09/13/17 06:20 Carbon Dioxide 27 mmol/L (21-33) 09/13/17 06:20 Anion Gap 15 (10-20) 09/13/17 06:20 BUN 34 mg/dL (7-21) H 09/13/17 06:20 Creatinine 1.1 mg/dl (0.7-1.2) 09/13/17 06:20 Est GFR ( Amer) > 60 09/13/17 06:20 Est GFR (Non-Af Amer) 50 09/13/17 06:20 Random Glucose 92 mg/dL (70-110) 09/13/17 06:20 Hemoglobin A1c 5.5 % (4.2-6.5) 09/12/17 05:00 Calcium 9.1 mg/dL (8.4-10.5) 09/13/17 06:20 Phosphorus 4.9 mg/dL (2.5-4.5) H 09/12/17 08:00 Magnesium 1.6 mg/dL (1.7-2.2) L 09/12/17 08:00 Total Bilirubin 0.3 mg/dL (0.2-1.3) 09/13/17 06:20 AST 30 U/L (14-36) 09/13/17 06:20 ALT 37 U/L (7-56) 09/13/17 06:20 Alkaline Phosphatase 85 U/L (38-126) 09/13/17 06:20 Lactate Dehydrogenase 702 U/L (333-699) H 09/11/17 13:22 Total Creatine Kinase 156 U/L (35-230) 09/11/17 13:22 Troponin I 0.04 ng/mL 09/12/17 01:20 NT-Pro-B Natriuret Pep 1510 pg/mL (0-450) H 09/11/17 13:22 Total Protein 7.6 g/dL (5.8-8.3) 09/13/17 06:20 Albumin 4.2 g/dL (3.0-4.8) 09/13/17 06:20 Globulin 3.4 gm/dL 09/13/17 06:20 Albumin/Globulin Ratio 1.2 (1.1-1.8) 09/13/17 06:20 Triglycerides 86 mg/dL (35-160) 09/12/17 05:00 Cholesterol 151 mg/dL (130-200) 09/12/17 05:00 LDL Cholesterol Direct 73 mg/dL (0-129) 09/12/17 05:00 HDL Cholesterol 47 mg/dL (29-60) 09/12/17 05:00 Free T4 1.57 ng/dL (0.78-2.19) 09/12/17 05:00 TSH 3rd Generation 2.38 mIU/mL (0.46-4.68) 09/12/17 05:00 Arterial Blood Potassium 3.9 mmol/L (3.6-5.2) 09/11/17 13:40 Venous Blood Potassium 4.3 mmol/L (3.6-5.2) 09/11/17 13:22 Urine Color Straw (YELLOW) 09/11/17 15:35 Urine Appearance Clear (CLEAR) 09/11/17 15:35 Urine pH 6.0 (4.7-8.0) 09/11/17 15:35 Ur Specific [place] <= 1.005 (1.005-1.035) 09/11/17 15:35 Urine Protein Negative mg/dL (<30 mg/dL) 09/11/17 15:35 Urine Glucose (UA) Negative mg/dL (NEGATIVE) 09/11/17 15:35 Urine Ketones Negative mg/dL (NEGATIVE) 09/11/17 15:35 Urine Blood Trace-lysed (NEGATIVE) H 09/11/17 15:35 Urine Nitrate Negative (NEGATIVE) 09/11/17 15:35 Urine Bilirubin Negative (NEGATIVE) 09/11/17 15:35 Urine Urobilinogen 0.2 E.U./dL (<1 E.U./dL) 09/11/17 15:35 Ur Leukocyte Esterase Trace Addy/uL (NEGATIVE) H 09/11/17 15:35 Urine RBC 0 - 2 /hpf (0-2) 09/11/17 15:35 Urine WBC 1 - 3 /hpf (0-6) 09/11/17 15:35 Ur Epithelial Cells 6 - 8 /hpf (0-5) 09/11/17 15:35 Urine Bacteria Few (NEG) 09/11/17 15:35 Influenza Typ A,B (EIA) Negative for flu a/b (NEGATIVE) 09/11/17 15:30 Ur L.pneumophila Ag Negative (NEGATIVE) 09/11/17 15:35 - Hospital Course Hospital Course: 62yo female PMHx HTN, hypothyroidism, and arthritis present to ED with shortness of breath and hypertensive urgency. As per EMS, pt acutely had an elevated BP, systolic BP 200s, and pt also suddenly started feeling short of breath, requiring hospital admission for this acute deterioration of her chronic condition (hypertension). Patient was initially started on a Nitro drip to lower her blood pressure, which then was controlled with Coreg and Lisinopril. Her BNP was also elevated, leading to concerns of new onset heart failure. Cardiology (Dr George) was consulted, and an echocardiogram was ordered and reviewed by him. As per him, pt can be discharged on aspirin, Coreg , Lisinopril, and Lasix. US of bilateral lower extremities showed no clots. Her urine culture grew group B beta hemolytic Strep, pt was then discharged on Ampicillin. - Date & Time of H&P Date of H&P: 09/11/17 Time of H&P: 14:40 Discharge Exam - Head Exam Head Exam: ATRAUMATIC, NORMAL INSPECTION, NORMOCEPHALIC - Eye Exam Eye Exam: EOMI, PERRL. absent: Conjunctival injection Pupil Exam: PERRL - ENT Exam ENT Exam: Mucous Membranes Moist - Respiratory Exam Respiratory Exam: Clear to PA & Lateral. absent: Chest Wall Tenderness, Respiratory Distress - Cardiovascular Exam Cardiovascular Exam: RRR, +S1, +S2. absent: Systolic Murmur - GI/Abdominal Exam GI & Abdominal Exam: Normal Bowel Sounds, Soft. absent: Distended, Firm, Guarding, Organomegaly, Rebound, Rigid, Tenderness, Unremarkable - Extremities Exam Extremities exam: normal inspection - Back Exam Back exam: NORMAL INSPECTION - Neurological Exam Neurological exam: Alert, Oriented x3 - Psychiatric Exam Psychiatric exam: Normal Mood - Skin Skin Exam: Dry, Warm Discharge Plan - Discharge Medications Prescriptions: AMPicillin [Ampicillin] 500 mg PO Q6 #28 cap Aspirin [Aspirin Chewable] 81 mg PO DAILY #30 chew Carvedilol [Coreg] 6.25 mg PO BID 30 Days tab Furosemide [Lasix] 20 mg PO DAILY #30 tablet Lisinopril [Zestril] 5 mg PO DAILY #30 tab - Follow Up Plan Condition: SERIOUS Disposition: HOME/ ROUTINE Patient education suggested?: No Instructions: Heart Failure (ED), Heart Failure (DC), Heart Failure (GEN), Pacemaker (DC), Pacemaker (GEN), Pulmonary Edema (DC), Pulmonary Edema (GEN), Ascites (DC), Ascites (GEN), Hypertension (DC), Hypertension (GEN) Additional Instructions: - F/u with primary care doctor within a week. - Resume Synthroid. Please start taking Carvedilol 6.25 mg two times a day, Lasix daily, Lisinopril, and Aspirin daily. - Will follow up with echocardiogram results. - Please return to the hospital if any concerns or returning symptoms. Referrals: Jeffrey George MD [Staff Provider] - <Quyen Roman - Last Filed: 09/14/17 06:57> Provider - Provider Date of Admission: 09/11/17 14:32 Attending physician: Quyen Roman MD Hospital Course - Lab Results Lab Results: Micro Results 09/11/17 16:00 Blood Blood Culture - Preliminary NO GROWTH AFTER 48 HOURS 09/11/17 15:45 Blood Blood Culture - Preliminary NO GROWTH AFTER 48 HOURS 09/11/17 15:35 Urine Urine Culture - Final Beta Hemolytic Strep Group B Most Recent Lab Values WBC 6.8 10^3/ul (4.5-11.0) 09/13/17 06:20 RBC 3.94 10^6/uL (3.5-6.1) 09/13/17 06:20 Hgb 11.2 g/dL (12.0-16.0) L 09/13/17 06:20 Hct 32.8 % (36.0-48.0) L 09/13/17 06:20 MCV 83.2 fl (80.0-105.0) 09/13/17 06:20 MCH 28.4 pg (25.0-35.0) 09/13/17 06:20 MCHC 34.1 g/dl (31.0-37.0) 09/13/17 06:20 RDW 12.9 % (11.5-14.5) 09/13/17 06:20 Plt Count 223 10^3/uL (120.0-450.0) 09/13/17 06:20 MPV 9.9 fl (7.0-11.0) 09/13/17 06:20 Gran % 50.4 % (50.0-68.0) 09/13/17 06:20 Lymph % (Auto) 34.0 % (22.0-35.0) 09/13/17 06:20 [place] % (Auto) 10.0 % (1.0-6.0) H 09/13/17 06:20 Eos % (Auto) 5.0 % (1.5-5.0) 09/13/17 06:20 Baso % (Auto) 0.6 % (0.0-3.0) 09/13/17 06:20 Gran # 3.45 (1.4-6.5) 09/13/17 06:20 Lymph # 2.3 (1.2-3.4) 09/13/17 06:20 [place] # 0.7 (0.1-0.6) H 09/13/17 06:20 Eos # 0.3 (0.0-0.7) 09/13/17 06:20 Baso # 0.04 K/mm3 (0.0-2.0) 09/13/17 06:20 PT 12.0 SECONDS (9.4-12.5) 09/11/17 13:22 INR 1.09 (0.93-1.08) H 09/11/17 13:22 APTT 31.8 Seconds (25.1-36.5) 09/11/17 13:22 pCO2 41 mm/Hg (35-45) 09/11/17 13:40 pO2 124.0 mm/Hg (80-100) H 09/11/17 13:40 HCO3 24.3 mmol/L (21-28) 09/11/17 13:40 ABG pH 7.38 (7.35-7.45) 09/11/17 13:40 ABG Total CO2 25.6 mmol.L (22-28) 09/11/17 13:40 ABG O2 Saturation 98.7 % (95-98) H 09/11/17 13:40 ABG Base Excess -0.8 mmol/L (-2.0-3.0) 09/11/17 13:40 ABG Potassium 3.9 mmol/L (3.6-5.2) 09/11/17 13:40 VBG pH 7.24 (7.32-7.43) L 09/11/17 13:22 VBG pCO2 65.0 (40-60) H 09/11/17 13:22 VBG HCO3 27.9 mmol/l (21-28) 09/11/17 13:22 VBG Total CO2 29.9 mmol.L (22-28) H 09/11/17 13:22 VBG O2 Sat (Calc) 69.0 % (40-65) H 09/11/17 13:22 VBG Base Excess -1.0 mmol/L (0.0-2.0) L 09/11/17 13:22 VBG Potassium 4.3 mmol/L (3.6-5.2) 09/11/17 13:22 Sodium 130.0 mmol/L (132-148) L 09/11/17 13:40 Chloride 99.0 mmol/L (98-107) 09/11/17 13:40 Glucose 97 mg/dl (65-105) 09/11/17 13:40 Lactate 1.3 mmol/L (0.7-2.1) 09/11/17 13:40 FiO2 32.0 % 09/11/17 13:40 Sodium 130 mmol/L (132-148) L 09/13/17 06:20 Potassium 3.8 mmol/L (3.6-5.0) 09/13/17 06:20 Chloride 92 mmol/L (98-107) L 09/13/17 06:20 Carbon Dioxide 27 mmol/L (21-33) 09/13/17 06:20 Anion Gap 15 (10-20) 09/13/17 06:20 BUN 34 mg/dL (7-21) H 09/13/17 06:20 Creatinine 1.1 mg/dl (0.7-1.2) 09/13/17 06:20 Est GFR ( Amer) > 60 09/13/17 06:20 Est GFR (Non-Af Amer) 50 09/13/17 06:20 Random Glucose 92 mg/dL (70-110) 09/13/17 06:20 Hemoglobin A1c 5.5 % (4.2-6.5) 09/12/17 05:00 Calcium 9.1 mg/dL (8.4-10.5) 09/13/17 06:20 Phosphorus 4.9 mg/dL (2.5-4.5) H 09/12/17 08:00 Magnesium 1.6 mg/dL (1.7-2.2) L 09/12/17 08:00 Total Bilirubin 0.3 mg/dL (0.2-1.3) 09/13/17 06:20 AST 30 U/L (14-36) 09/13/17 06:20 ALT 37 U/L (7-56) 09/13/17 06:20 Alkaline Phosphatase 85 U/L (38-126) 09/13/17 06:20 Lactate Dehydrogenase 702 U/L (333-699) H 09/11/17 13:22 Total Creatine Kinase 156 U/L (35-230) 09/11/17 13:22 Troponin I 0.04 ng/mL 09/12/17 01:20 NT-Pro-B Natriuret Pep 1510 pg/mL (0-450) H 09/11/17 13:22 Total Protein 7.6 g/dL (5.8-8.3) 09/13/17 06:20 Albumin 4.2 g/dL (3.0-4.8) 09/13/17 06:20 Globulin 3.4 gm/dL 09/13/17 06:20 Albumin/Globulin Ratio 1.2 (1.1-1.8) 09/13/17 06:20 Triglycerides 86 mg/dL (35-160) 09/12/17 05:00 Cholesterol 151 mg/dL (130-200) 09/12/17 05:00 LDL Cholesterol Direct 73 mg/dL (0-129) 09/12/17 05:00 HDL Cholesterol 47 mg/dL (29-60) 09/12/17 05:00 Free T4 1.57 ng/dL (0.78-2.19) 09/12/17 05:00 TSH 3rd Generation 2.38 mIU/mL (0.46-4.68) 09/12/17 05:00 Arterial Blood Potassium 3.9 mmol/L (3.6-5.2) 09/11/17 13:40 Venous Blood Potassium 4.3 mmol/L (3.6-5.2) 09/11/17 13:22 Urine Color Straw (YELLOW) 09/11/17 15:35 Urine Appearance Clear (CLEAR) 09/11/17 15:35 Urine pH 6.0 (4.7-8.0) 09/11/17 15:35 Ur Specific [place] <= 1.005 (1.005-1.035) 09/11/17 15:35 Urine Protein Negative mg/dL (<30 mg/dL) 09/11/17 15:35 Urine Glucose (UA) Negative mg/dL (NEGATIVE) 09/11/17 15:35 Urine Ketones Negative mg/dL (NEGATIVE) 09/11/17 15:35 Urine Blood Trace-lysed (NEGATIVE) H 09/11/17 15:35 Urine Nitrate Negative (NEGATIVE) 09/11/17 15:35 Urine Bilirubin Negative (NEGATIVE) 09/11/17 15:35 Urine Urobilinogen 0.2 E.U./dL (<1 E.U./dL) 09/11/17 15:35 Ur Leukocyte Esterase Trace Addy/uL (NEGATIVE) H 09/11/17 15:35 Urine RBC 0 - 2 /hpf (0-2) 09/11/17 15:35 Urine WBC 1 - 3 /hpf (0-6) 09/11/17 15:35 Ur Epithelial Cells 6 - 8 /hpf (0-5) 09/11/17 15:35 Urine Bacteria Few (NEG) 09/11/17 15:35 Influenza Typ A,B (EIA) Negative for flu a/b (NEGATIVE) 09/11/17 15:30 Ur L.pneumophila Ag Negative (NEGATIVE) 09/11/17 15:35 Attending/Attestation - Attestation I have personally seen and examined this patient.: Yes I have fully participated in the care of the patient.: Yes I have reviewed all pertinent clinical information, including history, physical exam and plan: Yes Notes (Text): 09/14/17 06:53 62 year old female with past medical history of hypertension, arthritis and hypothyroidism who presented with shortness of breath and hypertensive urgency. She was started initially on nitro drip with improvement of her blood pressure. She was also started on iv lasix with improvement of her dyspnea. She was seen by cardiology. She was on coreg, lisinopril, aspirin and lasix. She and daughter reported a recent cardiac cath in [place] which was negative. She had an echocardiogram today which was reviewed by cardiology; consider diastolic CHF per Dr. George. She was also on antibiotics for UTI. Overall her symptoms improved. She is discharged home today to follow up with her pmd. Continue with aspirin, coreg, lisinopril and lasix. Quyen Roman MD Hospitalist.
--- NOTE | 2017-09-14 11:09 | CARD ---
APPROVED REPORT EXAM: Two-dimensional and M-mode echocardiogram with Doppler and color Doppler. Other Information Quality : AverageRhythm : INDICATION Dyspnea Hypertension/HCVD 2D DIMENSIONS Left Atrium (2D)4.1 (1.6-4.0cm)IVSd1.2 (0.7-1.1cm) LVDd4.8 (3.9-5.9cm)PWd1.2 (0.7-1.1cm) LVDs3.6 (2.5-4.0cm)FS (%) 26.1 % LVEF (%)51.0 (>50%) M-Mode DIMENSIONS Aortic Root2.20 (2.2-3.7cm)Aortic Cusp Exc.1.30 (1.5-2.0cm) Aortic Valve AoV Peak Yrzjneio041.0cm/s Mitral Valve MV E Tkeezxzg55.5cm/sMV A Jrewuhrf26.7cm/sE/A ratio0.7 TDI E/Lateral E'0.0E/Medial E'0.0 Tricuspid Valve TR Peak [id number]/sRAP [id number] Peak Gr.24mmHg [id number] LEFT VENTRICLE The left ventricle is normal size. There is mild concentric left ventricular hypertrophy. The left ventricular function is normal. The left ventricular ejection fraction is within the normal range. There is normal LV segmental wall motion. RIGHT VENTRICLE The right ventricle is normal size. ATRIA The left atrium is mildly dilated. The right atrium size is normal. The interatrial septum is intact with no evidence for an atrial septal defect. AORTIC VALVE The aortic valve is mildly calcified. Aortic sclerosis. MITRAL VALVE The mitral valve is normal in structure. Mitral regurgitation is mild to moderate. TRICUSPID VALVE The tricuspid valve is normal in structure. There is mild tricuspid regurgitation. GREAT VESSELS The aortic root is normal in size. PERICARDIAL EFFUSION There is no pericardial effusion. <Conclusion> The left ventricle is normal size. There is mild concentric left ventricular hypertrophy. The left ventricular function is normal. Mitral regurgitation is mild to moderate. There is mild tricuspid regurgitation.
== END 2017-09-13 17:41 | disposition home or self-care (01) ==
LOC: ED 12:41 → ERH 14:32 → 3RSO 17:06
PROVIDERS: ADMIT Internal Medicine; ATTEND Internal Medicine
DX: I16.0 Hypertensive urgency (principal); I11.0 Hypertensive heart disease with heart failure; I50.31 Acute diastolic (congestive) heart failure; I25.10 Atherosclerotic heart disease of native coronary artery without angina pectoris; G40.909 Epilepsy, unspecified, not intractable, without status epilepticus; E03.9 Hypothyroidism, unspecified; M19.90 Unspecified osteoarthritis, unspecified site; N39.0 Urinary tract infection, site not specified; Z72.0 Tobacco use; R00.0 Tachycardia, unspecified; B95.1 Streptococcus, group B, as the cause of diseases classified elsewhere
CPT/HCPCS: 36415; 71010; 80053; 80061; 81001; 82550; 82803; 83036; 83615; 83735; 83880; 84100; 84439; 84443; 84484; 85025; 85610; 85730; 87040; 87086; 87181; 87449; 87804; 93005; 93306; 93970; 96374; 97116; 97162; 97165; 97530; 99285; G0378; G8978; G8979; G8980; G8987; G8988; G8989; J1650; J1940; J3475